=== PATIENT | male | born 2000 | race Caucasian/White ===

== ENCOUNTER 2021-11-26 12:38 | Emergency (ER) | payer OTHER, SELFPAY ==
--- NOTE | ~2021-11-26 | XR_ITS ---
EXAMINATION: XR chest 1V portable DATE: 11/26/2021 13:56 INDICATION: Fever and shortness of breath. Headache. TECHNIQUE: A single frontal view of the chest was obtained. COMPARISON: None. FINDINGS: The chest demonstrates clear lungs without pneumonia, pleural effusion, or pneumothorax. Th e heart size is normal. IMPRESSION: 1. No acute cardiopulmonary disease. Reviewed, dictated and finalized at location B. [employer]
[2021-11-26 12:46] VITALS: BP 129/74; PULSE 88; RESP 16; TEMP 36.6; O2SAT 100
--- NOTE | 2021-11-26 13:24 | PC.NURSE ---
pt denies receiving covid or flu vaccine.
[2021-11-26] MEDS: KETOROLAC (*BKC) 60 MG/2 ML VIAL IM (13:54)
[2021-11-26] MEDS: Please add drug allergy info to patient profile. 1 EACH XX (13:58)
--- NOTE | 2021-11-26 14:51 | ED.GENADULT ---
HPI - General Adult General Chief complaint: Headache Stated complaint: FARIA XTD Time Seen by Provider: 11/26/21 13:14 History of Present Illness HPI narrative: Patient is a 21-year-old male with chief complaint of runny nose, congestion, headache, intermittent back spasms over the past day. Patient reports that he is unvaccinated against COVID. Patient denies any fevers, chills, cough, shortness of breath. Patient denies any flank pain or urinary symptoms. Patient reports taking 1 ibuprofen at home which did not remit his symptoms. Patient [place] any changes in vision or hearing, neurological deficits, speech deficits, weakness to his upper or lower extremities. patient denies any chronic medical conditions. Patient denies any falls or traumas. Related Data Allergies Allergy/AdvReac Type Severity Reaction Status Date / Time No Known Allergies Allergy Verified 11/26/21 13:58 Review of Systems Review of Systems: CONSTITUTIONAL: Denies fever, chills, or sweats. EYES: Denies visual changes, redness, or discharge. ENT: Reports rhinorrhea, congestion, denies sore throat, or otalgia. CARDIOVASCULAR: Denies chest pain, palpitations, or edema. RESPIRATORY: Denies cough or dyspnea. GASTROINTESTINAL: Denies abdominal pain, nausea, vomiting, or diarrhea. GENITOURINARY: Denies dysuria or hematuria. SKIN: Denies rash or itching. MUSCULOSKELETAL: Reports back pain, denies joint pain, or myalgia. NEUROLOGIC: Reports headache, denies numbness, dizziness, or weakness. PSYCHIATRIC: Denies anxiety or depression. Exam Narrative: GENERAL: Well-appearing, well-nourished. Appears uncomfortable. Nontoxic in appearance. HEAD: Normocephalic, atraumatic. EYES: PERRLA and EOMI. NECK: Supple. Range of motion intact without rigidity. CHEST: Clear to auscultation. No respiratory distress. No wheezes rales or rhonchi HEART: Regular rate and rhythm. No murmur heard. Normal peripheral pulses. BACK: No CVA tenderness. No vertebral point tenderness. EXTREMITIES: Normal range of motion. No edema. SKIN: Warm, dry, no rash. NEURO: No focal deficits. Alert and oriented x3. PSYCH: Normal mood and affect. Course Vital Signs Vital signs: Vital Signs Temperature 98 F 11/26/21 12:46 Pulse Rate 88 11/26/21 12:46 Respiratory Rate 16 11/26/21 12:46 Blood Pressure 129/74 11/26/21 12:46 Pulse Oximetry 100 11/26/21 12:46 Temperature 98 F 11/26/21 12:46 Pulse Rate 88 11/26/21 12:46 Respiratory Rate 16 11/26/21 12:46 Blood Pressure 129/74 11/26/21 12:46 Pulse Oximetry 100 11/26/21 12:46 Medical Decision Making MDM Narrative Medical decision making narrative: patients pain is positional in nature and localized to back without signs of cord compression or cauda equina based on neurological exam, skeletal exam and history. No fever or other significant factors to suggest osteomyelitis or spinal epidural abscess. No symptoms or signs to suggest pain is referred from abdominal or / cardiopulmonary sources. Patient ambulates with steady gait and is stable for outpatient management given case findings. Patient had improvement of symptoms states he is ready to be discharged home. Patient is a tested for COVID and given instructions on obtaining his results. Patient denies any other needs or concerns at this time aside that he is ready to be discharged. Patient given return to ER instructions and need for follow-up with primary. Vital Signs Vital Signs: Vital Signs Temperature 98 F 11/26/21 12:46 Pulse Rate 88 11/26/21 12:46 Respiratory Rate 16 11/26/21 12:46 Blood Pressure 129/74 11/26/21 12:46 Pulse Oximetry 100 11/26/21 12:46 Temperature 98 F 11/26/21 12:46 Pulse Rate 88 11/26/21 12:46 Respiratory Rate 16 11/26/21 12:46 Blood Pressure 129/74 11/26/21 12:46 Pulse Oximetry 100 11/26/21 12:46 Lab Data Labs: Lab Results 11/26/21 11/26/21 Range/Units 14:43 15:52 Urine Color Yello
[2021-11-26 14:58] LABS: Add Urine Microscopic? YES; Appearance Urine Clear (Clear); Bilirubin Urine Negative (Negative); Blood Urine Negative (Negative); Color Urine Yellow (Yellow); Glucose Urine UA Negative (Negative); Ketones Urine Trace mg/dL (Negative); Leukocyte Esterase Ur Negative LEU/UL (Negative); Mucus Urine Rare /lpf; Nitrate Urine Negative (Negative); Protein Urine 1+ mg/dL (Negative); RBC Urine 0-2 /hpf (0-2); Specific Grav Ur 1.028 (1.001-1.035); WBC Urine 0-3 /hpf
[2021-11-27 21:18] LABS: SARS-CoV-2 RNA PCR Positive
== END 2021-11-26 15:58 | disposition home or self-care (01) ==
PROVIDERS: Physician Assistant; Emergency Provider Emergency Medicine
DX: U07.1 COVID-19 (principal); R51.9 Headache, unspecified
CPT/HCPCS: 71045; 81001; 87804; 96372; 99283; C9803; J1885; U0003; U0005